=== PATIENT | male | born 1975 | race Caucasian/White ===

== ENCOUNTER 2016-11-20 03:47 | Emergency (ER) | payer MEDICARE, OTHER | END 2016-11-20 04:53 | disposition home or self-care (01) | LOC: ER 03:47 | DX: M25.511 Pain in right shoulder (principal); S49.91XA Unspecified injury of right shoulder and upper arm, initial encounter; W19.XXXA Unspecified fall, initial encounter | CPT/HCPCS: 73030; 99282; 99283 ==